=== PATIENT | female | born 1995 | race Caucasian/White ===

== ENCOUNTER 2017-06-27 22:10 | Emergency (ER) | payer OTHER ==
[~2017-06-27] VITALS: Ht 152.4 cm; Wt 63.5 kg
[~2017-06-27 22:10] MED LIST: KEFLEX500 M1 PO; PERCOCET 5-3251 EACH PO; PREDNISOLO15 MG/5 M4 PO
--- NOTE | 2017-06-28 00:42 | ED HEADACHE COMPLAINT ---
History of Present Illness General Chief Complaint: Headache Stated Complaint: ZAZUETA, +N Source: patient, family, old records Exam Limitations: no limitations Vital Signs & Intake/Output Vital Signs & Intake/Output Vital Signs Date Time Temp Pulse Resp B/P B/P Pulse O2 O2 Flow FiO2 Mean Ox Delivery Rate 06/27 2226 98.9 93 18 127/92 99 Room Air ED Intake and Output 06/28 0000 06/27 1200 Intake Total Output Total Balance Patient 140 lb Weight Weight Reported by Patient Measurement Method Allergies Coded Allergies: cephalexin (From KEFLEX) (Severe, HIVES 06/27/17) sulfamethoxazole (From BACTRIM) (Severe, HIVES 06/27/17) trimethoprim (From BACTRIM) (Severe, HIVES 06/27/17) amoxicillin (Intermediate, HIVES 01/14/17) Uncoded Allergies: SEASONAL (12/23/14) Reconcile Medications Cephalexin (Keflex) 500 MG CAPSULE 1 CAP PO TID ABSCESS Oxycodone HCl/Acetaminophen (Percocet 5-325 MG Tablet) 5 MG-325 MG TABLET 1 TAB PO TID PRN PAIN Prednisolone 15 MG/5 ML SOLUTION 10 ML PO QDAY allergic reaction Triage Note: PT FROM HOME C/O ZAZUETA X1 MONTH. PT STATES FOR THE PAST MONTH INTERMITTENTLY PT HAS HAD A ZAZUETA INTERMITTENTLY. PT STATED SHE THOUGHT IT WOULD GO AWAY AND WAS OCCURING FROM A NEW ANXIETY MEDICATION, TODAY PT STATES IT HAS INCREASED AND NOT BEEN RELIEVED WITH TYLENOL OR MOTRIN. VSS. PT STATES NO BLURRY VISION AND BP 127/92. Triage Nurses Notes Reviewed? yes Onset: 1 month Duration: week(s):, changing over time, continues in ED, intermittent Timing: recent history Quality/Severity: moderate, severe, achy, throbbing Head Injury Location: global Modifying Factors: Improves With: medication. LMP (ages 10-50): unknown : No Patient currently breastfeeds: No HPI: 1 month prior to admission patient complains of recurrent daily headaches described as [id number] associated with nausea usually relieved with Tylenol or Motrin. Headaches have been increasing in severity. 1 day prior to admission she complains of severe headache requiring Tylenol and Motrin. She denies fever chills vomiting diarrhea chest pain cough shortness of breath dysuria rash bleeding. She reports being weaned off Celexa and starting trintellix last week. Past History Travel History Traveled to [place] past 21 day No Medical History Any Pertinent Medical History? see below for history Neurological: NONE EENT: NONE Cardiovascular: FAMILIAL HX OF BROGADA SYNDROME Respiratory: asthma Gastrointestinal: NONE Hepatic: NONE Renal: NONE Musculoskeletal: NONE Psychiatric: anxiety Endocrine: NONE Blood Disorders: NONE Cancer(s): NONE CLINIC SUPERVISOR/Reproductive: NONE Surgical History Surgical History: N Psychosocial History What is your primary language Samoan Tobacco Use: Never used Family History Hx Contributory? Yes Review of Systems Review of Systems Constitutional: Reports: no symptoms. Eyes: Reports: no symptoms. Ears, Nose, Throat, Mouth: Reports: no symptoms. Respiratory: Reports: no symptoms. Cardiovascular: Reports: no symptoms. Gastrointestinal/Abdominal: Reports: see HPI, nausea. Genitourinary: Reports: no symptoms. Musculoskeletal: Reports: no symptoms. Skin: Reports: no symptoms. Neurological/Psychological: Reports: see HPI, headache. Hematologic/Endocrine: Reports: no symptoms. Endocrine: Reports: no symptoms. Immunologic/Allergic: Reports: no symptoms. All Other Systems: Reviewed and Negative Physical Exam Physical Exam General Appearance: well developed/nourished, alert, awake, anxious, moderate distress Head: atraumatic, normal appearance Eyes: Bilateral: normal appearance, PERRL, EOMI. Ears, Nose, Throat: normal pharynx, normal ENT inspection, hearing grossly normal Neck: normal inspection, supple, full range of motion, trachea midline, no midline tenderness Respiratory: normal breath sounds, chest non-tender, no respiratory distress, quiet respiration, lungs clear Cardiovascular: regular rate/rhythm, normal peripheral pulses, norml femoral pulses equa Gastrointestinal: normal bowel sounds, soft, non-tender, no organomegaly Back: normal inspection, normal range of motion, no vertebral tenderness Extremities: normal inspection, normal capillary refill, normal range of motion, no edema, no ligament instability Psychiatric: awake, alert, oriented x 3 Cranial Nerves: normal hearing, normal speech, PERRL Coordination/Gait: normal finger to nose, normal gait Motor/Sensory: no motor/sensory deficits Reflexes: 2+: bicep (R), bicep (L). Skin: intact, normal color, warm/dry Lymphatic: no anterior cervical liseth Core Measures Sepsis Present: No Sepsis Focused Exam Completed? No Progress Differential Diagnosis: cluster ZAZUETA, migraine ZAZUETA, tension ZZAUETA Plan of Care: Orders Procedure Date/time Status URINE 06/27 2211 Complete URINALYSIS 06/27 2211 Complete Laboratory Tests 06/27/172245: Urine Color YEL, Urine Clarity CLEAR, Urine pH 6.5, Ur Specific [place] <= 1.005 , Urine Protein NEG, Urine Ketones NEG, Urine Nitrite NEG, Urine Bilirubin NEG, Urine Urobilinogen 0.2, Ur Leukocyte Esterase NEG, Ur Microscopic EXAM NOT REQUIRED, Urine Hemoglobin NEG, Urine Glucose NEG, Urine Test NEGATIVE Departure Departure Time of Disposition: 216 Disposition: HOME OR SELF CARE Condition: Stable Clinical Impression Primary Impression: Headache Qualifiers: Headache type: unspecified Referrals: Mona MONDRAGON,Ada Ahn (PCP/Family) Departure Forms: Customer Survey General Discharge Information Prescriptions: Current Visit Scripts Butalb/Acetaminophen/Caffeine ([id number] 50-300-40) 1 TAB PO Q6P PRN headache #30 TAB Ibuprofen 1 TAB PO Q6PRN PRN pain #50 TAB with food
--- NOTE | 2017-06-28 01:11 | CT SCAN REPORT ---
EXAMINATION: CT HEAD WITHOUT CONTRAST CLINICAL INFORMATION: Headaches COMPARISON: None. TECHNIQUE: Contiguous axial imaging was performed from the skull base to vertex without intravenous contrast. DLP: 614 mGy-cm. FINDINGS: There is no evidence of acute intracranial hemorrhage or territorial infarction. No abnormal mass effect or midline shift is seen. Pro to white matter differentiation is well preserved. No extra-axial fluid collections are identified. No hydrocephalus. No volume loss. There is no abnormal attenuation within the brain parenchyma. The osseous structures and soft tissues are normal. The mastoid air cells and visualized portions of the paranasal sinuses are well aerated. IMPRESSION: No acute intracranial pathology.
[2017-06-28] MEDS ORDERED: BUTALB-ACETAMI1 EAC1 PO (02:18)
[2017-06-28] MEDS ORDERED: IBUPROFEN600 M1 PO (02:19)
[2017-06-28 02:25] VITALS: BP 122/76
== END 2017-06-28 02:26 ==
LOC: ERH 22:10
DX: R51 Headache (principal)
CPT/HCPCS: 81003; 81025; J3101